=== PATIENT | female | born 1945 | race Caucasian/White ===

== ENCOUNTER → 2019-01-22 10:56 | Outpatient (CLI) | payer MEDICARE, SELFPAY ==
[2018-12-14 15:22] VITALS: BMI 29.2
--- NOTE | 2019-01-22 11:00 | BI_ITS ---
MAMMOGRAPHY - BILATERAL SCREENING 3-D NAYA SYNTHESIS REASON FOR EXAM: Female, 73 years old. Bilateral Screening 3-D tomosynthesis PERTINENT HISTORY: History of breast cancer in sister at age 50. TECHNIQUE: 2-D mammograms and 3-D Naya synthesis of the breast (s) were performed. CAD was performed. COMPARISON: September 17, 2017, March 07, 2015 FINDINGS: The breast composition is almost entirely fat. Scattered benign calcifications are stable. There are stable normal-appearing lymph nodes. No dense spiculated masses or suspicious microcalcifications are identified. No architectural distortion is identified. There is no skin thickening or retraction. There has been no significant change since the prior study. BI/SCREENING MAMM (CAD), BILAT IMPRESSION: No mammographic signs of malignancy. Routine yearly mammograms recommended. ASSESSMENT CATEGORY: BIRADS Category 2: Benign. A letter regarding these results will be sent to the patient by the facility within 30 days. FOLLOW UP RECOMMENDATION: Yearly follow up mammogram recommended. (A) Approximately 10% of breast cancers are not detected by mammography. A normal mammogram should not delay biopsy of a clinically suspicious abnormality. Electronically Signed: Sam Eugene MD at 17:36 EDT , Service support ,
== END ==
PROVIDERS: Family Provider Internal Medicine; PCP Internal Medicine; Visit Provider Internal Medicine
DX: Z12.31 Encounter for screening mammogram for malignant neoplasm of breast (principal); Z80.3 Family history of malignant neoplasm of breast
CPT/HCPCS: 77063; 77067

== ENCOUNTER → 2020-08-29 | Outpatient (CLI) | payer MEDICARE, SELFPAY ==
[2020-05-15 08:44] VITALS: BMI 29.5
--- NOTE | 2020-08-29 09:20 | CT_ITS ---
STUDY: CTA CHEST REASON FOR EXAM: Female, 75 years old. +COVID----WORSENING SHORTNESS OF BREATH X2 DAYS RADIATION DOSAGE (If Supplied By Facility): CTDIvol = ( 8.75 ) mGy, DLP = ( 326.65 ) mGycm TECHNIQUE: The examination was performed with the intravenous administration of IV 100mL Isovue-370. Post-processing of the angiographic images was performed, with multiplanar reformation and 3D reconstruction. Individualized dose optimization techniques were used for this CT. COMPARISON: None. FINDINGS: Normal enhancement of the main pulmonary artery and right and left pulmonary arteries. Normal enhancement of the bilateral peripheral pulmonary arteries. There is no demonstrated pulmonary embolism. Normal thoracic aorta and visualized great vessels. There is no demonstrated aortic dissection. Normal heart and pericardium. Normal mediastinum. Normal hilar regions. Normal visualized trachea and bronchi. Hyperinflation. Multiple areas of groundglass appearance seen in both upper and lower lobes with a peripheral distribution. This is worse in the right lower lobe. Findings are suggestive of pneumonitis related to Covid19 infection. Normal pleura. Normal chest wall structures. There are degenerative changes of thoracic spine. There is a 4.1 cm x 4.2 cm cyst in the upper pole of the right kidney. CT/CTA Chest W/WO Contrast IMPRESSION: Multiple areas of groundglass appearance involving both lungs more prominent in the right lower lobe and a preferential lateral distribution. Findings are suggestive of a pneumonitis related to Covid 19 Electronically Signed: Jose Rosen, at 10:20 EDT , Service support ,
[2020-08-29 09:35] LABS: CREATININE FINGERSTICK < 0.6 mg/dL (0.55-1.02); EGFR FINGERSTICK > 60.0000 mL/min (>60)
[2020-08-29 10:05] LABS: Absolute Lymphocyte Count 1.24 X10^3/uL (0.83-4.51); Absolute Neutrophil Count 3.5 X10^3/uL (2.0-7.7); Basophil# 0.02 X10^3/uL; Basophil% 0.4 % (0-1); Eosinophil# 0.01 X10^3/uL; Eosinophils% 0.2 % (0-5); Hematocrit 43.4 % (37-47); Hemoglobin 14.2 g/dL (12.0-15.0); Lymphocyte # 1.24 X10^3/ul (4.0); Lymphocyte % 23.8 % (19-41); Mean Corp Hgb Conc 32.7 g/dL (32-36); Mean Corpuscular Hgb 31.6 pg (27.0-32.0); Mean Corpuscular Volume 96.4 fL (81-99); Mean Platelet Vol. 9.5 fl (6.2-12.0); Monocyte% 7.7 % (0-10); NRBC Flagged by Analyzer 0 % (0-5); Neutrophil # 3.53 X10^3/uL (2.7-7.7); Neutrophil % 67.5 % (47-70); Platelet Count 252 K/mm3 (150-450); RBC Distribution Width SD 42.7 fl (35.1-43.9); White Blood Count 5.2 K/mm3 (4.4-11.0)
[2020-08-29 10:10] LABS: BNP,B-Type NATRIURETIC PEPTIDE 28.4 pg/mL (0-100)
[2020-08-29 10:11] LABS: ALB/GLOB Ratio 0.9 RATIO (0.9-2.4); AST(SGOT) 35 U/L (15-37); Alanine Aminotransfer ALT/SGPT 31 U/L (13-56); Albumin, Serum 3.5 g/dL (3.2-5.0); Alkaline Phosphatase 101 U/L (45-117); Anion Gap 6 (5-15); BUN 9 mg/dL (7-18); BUN/Creat Ratio 11.3 RATIO (10-20); Calcium,Total 8.8 mg/dL (8.5-10.1); Chloride 106 mmol/L (98-107); EST Glomerular Filtration Rate 75 mL/min (>60); Est Glom Filt Rate - Afr Amer 91 mL/min (>60); Globulin 4.1 g/dL (2.2-4.2); Glucose 108 mg/dL (74-106); Potassium 3.7 mmol/L (3.5-5.1); Protein, Total 7.6 g/dL (6.4-8.2); Sodium Level 140 mmol/L (136-145)
== END | disposition home or self-care (01) ==
LOC: CT 09:17 → LABSPEC 09:45
PROVIDERS: PCP Internal Medicine; Referring Provider Internal Medicine; Visit Provider Internal Medicine
DX: R09.02 Hypoxemia (principal); B97.21 SARS-associated coronavirus as the cause of diseases classified elsewhere
CPT/HCPCS: 71275; 80053; 83880; 85025; Q9967

== ENCOUNTER → 2021-04-12 15:05 | Outpatient (CLI) | payer MEDICARE, SELFPAY ==
[2021-04-12 13:37] VITALS: BMI 29.5
[2021-04-12 15:40] LABS: Mucous, Urine 0 SEEN /hpf (<or=2+); Squamous Epithelial Cells - UA 0 SEEN /hpf (5-10)
[2021-04-12 16:00] LABS: Color, Urine Yellow (Yellow); Glucose, Dipstick Normal (Normal); Ketone-Dipstick Negative (Negative); Leukocyte Esterase-Dipstick 500 /ul (Negative); Nitrite-Dipstick Positive (Negative); Occult Blood-Urine 250 /ul (Negative); Protein-Dipstick 30 mg/dl (Negative); Urine Bilirubin Dipstick Negative (Negative); Urine Clarity Cloudy (Clear); Urine Urobilinogen Normal (Normal)
[2021-04-12 16:10] LABS: Bacteria 1+ /hpf (None Seen); Red Blood Cells-Urine 50-100 SEEN /hpf (0-5); White Blood Cells >100 SEEN /hpf (0-5)
== END ==
PROVIDERS: PCP Internal Medicine; Referring Provider Physician Assistant; Visit Provider Physician Assistant
DX: N39.0 Urinary tract infection, site not specified (principal)
CPT/HCPCS: 81001; 87086; 87088; 87186

== ENCOUNTER → 2021-05-08 08:23 | Outpatient (CLI) | payer MEDICARE, SELFPAY ==
[2020-05-15 08:44] VITALS: BMI 29.5
[2021-04-12 13:37] VITALS: BMI 29.5
--- NOTE | 2021-05-08 08:25 | BI_ITS ---
MAMMOGRAPHY - BILATERAL SCREENING REASON FOR EXAM: Female, 75 years old. Routine annual screening examination. PERTINENT HISTORY: Sister with breast cancer. TECHNIQUE: Digital bilateral breast naya (3D mammographic acquisition) in the CC and MLO projections. 2-D mediolateral oblique (MLO) and craniocaudad (CC) views of both breasts were obtained. CAD: Full Field Digital Mammography with Computer Added Detection was performed. COMPARISON: Comparison is made with prior study 01/22/2019 and 09/17/2017. FINDINGS: Breast Composition: The breasts are heterogeneously dense, which may obscure small masses. There are no dominant masses or suspicious calcifications. Stable 6.4 mm x 7 mm well-defined nodule with a central fatty notch in the axillary region of the right breast suggestive of a small lymph node. No other significant abnormalities are identified. There has been no significant change since the prior study. BI/SCRN MAMM (CAD)W/NAYA BILAT IMPRESSION: Stable bilateral screening mammogram. Yearly follow-up mammogram recommended. (A) ASSESSMENT CATEGORY: BIRADS Category 2: Benign. A letter regarding these results will be sent to the patient by the facility within 30 days. Approximately 10% of breast cancers are not detected by mammography. A normal mammogram should not delay biopsy of a clinically suspicious abnormality. [id number] Electronically Signed: Jose Rosen MD at 9:36 EDT , Service support ,
== END ==
PROVIDERS: PCP Internal Medicine; Referring Provider Obstetrics & Gynecology; Visit Provider Obstetrics & Gynecology
DX: Z12.31 Encounter for screening mammogram for malignant neoplasm of breast (principal); Z80.3 Family history of malignant neoplasm of breast
CPT/HCPCS: 77063; 77067

== ENCOUNTER 2022-10-31 10:16 | Outpatient (CLI) | payer MEDICARE, SELFPAY ==
--- NOTE | 2022-10-31 | VUL_PTH ---
PATIENT: STU TUTTLE LOC: [facility] U#:[id number] AGE/SX: 77/F ROOM: RE10/31/[address]: Dr. Rosina Mercedes MD : 1945 BED: DIS: 10/31/2022 SPEC #: [id number] RECD: 10/31/22 12:49 STATUS: LISSET OSORIO #: [id number] ALEJANDRA: 10/31/22 00:[address]: Rosina Mercedes DEPT: SURGICAL PATHOLOGY RECD BY: Sirena Rizo ENTERED: 11/01/22 09:11 SP TYPE: VULVA BX OTHR DR: Dr. Nicole Higginbotham DO Tissues: Vulva, NOS Procedures: Surgery Specimen Level III HEADER OPERATION: Vulvar biopsy PRE-OP DIAGNOSIS: Vulvar lesion TISSUE SUBMITTED: Vulva MICROSCOPIC DIAGNOSIS Vulvar lesion, biopsy: Fibroepithelial polyp, inflamed. AM:joanna 11/05/2022 MICROSCOPIC DESCRIPTION Slides are reviewed. GROSS DESCRIPTION Received is one container labeled with the patient's name and not further designated. The specimen consists of a piece of crane-white skin measuring 1 x 0.5 x 0.3 cm. The skin surface shows verrucous lesion. The specimen is inked and submitted entirely in one cassette. / SJ:rg 11/01/2022 TC:1 CPT: 53965
[2022-10-31 11:20] LABS: NATERA MAILED SPECIMEN
== END 2022-10-31 23:59 | disposition home or self-care (01) ==
PROVIDERS: PCP Internal Medicine; Referring Provider Obstetrics & Gynecology; Visit Provider Obstetrics & Gynecology
DX: N84.3 Polyp of vulva (principal); Z80.3 Family history of malignant neoplasm of breast
CPT/HCPCS: 88304; 88305

== ENCOUNTER → 2022-11-21 | Outpatient (CLI) | payer MEDICARE, SELFPAY ==
--- NOTE | 2022-11-22 09:11 | EKG12_ITS ---
Test Reason : PRE OP Blood Pressure : / mmHG Vent. Rate : 075 BPM Atrial Rate : 075 BPM P-R Int : 122 ms QRS Dur : 070 ms QT Int : 374 ms P-R-T Axes : 062 034 027 degrees QTc Int : 417 ms Normal sinus rhythm Low voltage QRS Borderline ECG Confirmed by BRIANNE AQUINO, MARIA VICTORIA ([id number]), newspaper editor managing GEM ZURITA ([id number]) on 11/25/2022 10:41:10 AM Referred By: Rosina Mercedes Confirmed By:MARIA VICTORIA DECKER MD
--- NOTE | 2022-11-26 02:34 | HP.PCM_ITS ---
HPI - General HPI Narrative STU TUTTLE, is a 77 F who presents with left vulvar groin lesion for excision and removal. biopsy showed a benign lesion but it is uncomfortable and she would like it removed. [facility] Medical History (Updated 11/26/22 @ 02:[address] Rosina Mercedes MD) Anxiety Arthritis Back pain Diabetes GERD (gastroesophageal reflux disease) History of echocardiogram History of pain when walking Hypercholesteremia Leg cramps Non-smoker Post-menopausal Thyroid disease Home Medications multivitamin with folic acid 400 mcg tablet 1 tab PO DAILY 01/02/16 [History Last Taken Unknown] levothyroxine 50 mcg tablet 50 mcg PO DAILY 12/14/18 [History Last Taken Unknown] omeprazole 40 mg capsule,delayed release 40 mg PO DAILY 05/15/20 [History Last Taken Unknown] clotrimazole-betamethasone 1 %-0.05 % topical cream 1 applic topical BID under breasts 2 weeks #45 grams 05/28/22 [Rx Last Taken Unknown] clobetasol 0.05 % topical ointment 1 applic topical QHS #30 grams 10/31/22 [Rx Last Taken Unknown] Allergy/AdvReac Type Severity Reaction Status Date / Time No Known Allergies Allergy Verified 11/21/22 14:11 Family History Mother Heart disease Sister Cancer ovarian Breast cancer Surgical History (Updated 11/21/22 @ 14:20 by Leana Vargas) History of thyroidectomy Social History Smoking Status: Never smoker alcohol intake: never substance use type: does not use caffeine: Yes what type of physical activity do you participate in: walking seatbelt use: always do you feel safe at home: Yes additional social history: patient is retired ROS Review of Systems ROS Unobtainable: due to mental status and other Constitutional Constitutional: Reports systems reviewed and no addt'l complaints, except as documented; Denies as per HPI, change in weight, fatigue, fever(s), malaise, weakness or other Eyes Eyes: Reports systems reviewed and no addt'l complaints, except as documented; Denies as per HPI, change in vision or other ENT HEENT: Reports systems reviewed and no addt'l complaints, except as documented Respiratory/Chest Respiratory/Chest: Reports systems reviewed and no addt'l complaints, except as documented Gastrointestinal Gastrointestinal: Reports systems reviewed and no addt'l complaints, except as documented and as per HPI Genitourinary Genitourinary: Reports as per HPI Musculoskeletal Musculoskeletal: Reports systems reviewed and no addt'l complaints, except as documented Neurologic Neurologic: Reports systems reviewed and no addt'l complaints, except as documented Psychiatric Psychiatric: Reports systems reviewed and no addt'l complaints, except as documented Endocrine Endocrinology: Reports systems reviewed and no addt'l complaints, except as documented Hematologic/Lymphatic Hematologic/Lymphatic: Reports systems reviewed and no addt'l complaints, except as documented Physical Exam Const alert, oriented x3 and no apparent distress HEENT normocephalic Head and Scalp: atraumatic Eyes EOMs intact bilaterally and conjunctivae normal Neck full ROM, no lymphadenopathy, supple and thyroid normal General: trachea midline Lymph Lymphatic: no lymphadenopathy noted Resp normal respiratory effort, no retractions, no use of accessory muscles and clear to auscultation bilaterally Cardio regular rhythm GI normal to inspection, nondistended, normoactive bowel sounds, soft to palpation, non-distended and no masses Inspection: Negative for abdominal distention Narrative: left groin 4 x 3 cm lesion fungating Back/Spine no CVA tenderness Extremity normal to inspection Skin no rashes or lesions noted Neuro moves all extremities and deep tendon reflexes 2+ bilaterally Psych mental status grossly normal Assessment & Plan Assessment/Plan (1) Vulvar lesion: PLAN: Plan After discussing the patient's diagnosis and treatment plan options, patient wishes to proceed with surgical management. I have discussed with the patient the risks, benefits, and alternatives of the procedure which include but are not limited to risks of anesthesia, bleeding, infection, possible damage to bowel, bladder, or surrounding vasculature which could lead to additional surgery to evaluate any complications. Patient agrees to procedure and wishes to proceed. ACOG/uptodate references given for additional information regarding procedure.
[2022-11-26 12:54] VITALS: BP 148/70; PULSE 91; RESP 18; TEMP 36; O2SAT 97; BMI 29.9
--- NOTE | 2022-11-26 13:40 | SUR.PREOP ---
PT IS BEING CANCELLED DUE TO EATING AND DRINKING AT 11AM BY . DR. LUKAS NIELSEN AND TO GO SEE THE PT AT BEDSIDE.
== END | disposition home or self-care (01) ==
LOC: PAT 12-16 13:51
PROVIDERS: PCP Internal Medicine; Referring Provider Obstetrics & Gynecology; Visit Provider Obstetrics & Gynecology
DX: Z01.810 Encounter for preprocedural cardiovascular examination (principal)
CPT/HCPCS: 93005; J7120; J2405

== ENCOUNTER → 2022-11-22 | Outpatient (CLI) | payer MEDICARE, SELFPAY ==
[2022-11-22 10:15] LABS: Absolute Lymphocyte Count 1.93 X10^3/uL (0.83-4.51); Basophil# 0.05 X10^3/uL; Basophil% 0.9 % (0-1); Eosinophil# 0.14 X10^3/uL; Eosinophils% 2.5 % (0-5); Hematocrit 39.8 % (37-47); Hemoglobin 13.1 g/dL (12.0-15.0); Lymphocyte # 1.93 X10^3/ul (0.83-4.51); Lymphocyte % 34.4 % (19-41); Mean Corp Hgb Conc 32.9 g/dL (32-36); Mean Corpuscular Hgb 31.5 pg (27.0-32.0); Mean Corpuscular Volume 95.7 fL (81-99); Mean Platelet Vol. 9.6 fl (6.2-12.0); Monocyte# 0.45 X10^3/uL; NRBC Flagged by Analyzer 0 % (0-5); Neutrophil # 3.03 X10^3/uL (2.7-7.7); Platelet Count 334 K/mm3 (150-450); RBC Distribution Width CV 11.9 % (11.6-14.6); RBC Distribution Width SD 41.4 fl (35.1-43.9); Red Blood Count 4.16 M/mm3 (4.2-5.4); White Blood Count 5.6 K/mm3 (4.4-11.0)
[2022-11-22 10:37] LABS: ALB/GLOB Ratio 1.1 RATIO (0.9-2.4); AST(SGOT) 15 U/L (15-37); Alanine Aminotransfer ALT/SGPT 23 U/L (13-56); Albumin, Serum 3.6 g/dL (3.2-5.0); Alkaline Phosphatase 69 U/L (45-117); Anion Gap 8 (5-15); BUN 12 mg/dL (7-18); BUN/Creat Ratio 15.3 RATIO (10-20); Calcium,Total 8.7 mg/dL (8.5-10.1); Chloride 105 mmol/L (98-107); Creatinine, Serum 0.79 mg/dL (0.55-1.02); EST Glomerular Filtration Rate 76 mL/min (>60); Est Glom Filt Rate - Afr Amer 91 mL/min (>60); Globulin 3.4 g/dL (2.2-4.2); Glucose 105 mg/dL (74-106); Potassium 3.5 mmol/L (3.5-5.1); Sodium Level 141 mmol/L (136-145)
== END | disposition home or self-care (01) ==
LOC: LAB 09:25
PROVIDERS: PCP Internal Medicine; Referring Provider Obstetrics & Gynecology; Visit Provider Obstetrics & Gynecology
DX: Z01.812 Encounter for preprocedural laboratory examination (principal)
CPT/HCPCS: 36415; 80053; 85025; 86850; 86900; 86901

== ENCOUNTER → 2022-11-28 | Outpatient (CLI) | payer MEDICARE, SELFPAY ==
--- NOTE | 2022-11-28 13:35 | BI_ITS ---
MAMMOGRAPHY - BILATERAL SCREENING REASON FOR EXAM: Female, 77 years old. Routine annual screening examination. PERTINENT HISTORY: Sister with breast cancer. TECHNIQUE: Digital bilateral breast naya (3D mammographic acquisition) in the CC and MLO projections. 2-D mediolateral oblique (MLO) and craniocaudad (CC) views of both breasts were obtained. CAD: Full Field Digital Mammography with Computer Added Detection was performed. COMPARISON: Comparison is made with prior examination dated 05/08/2021 and 01/22/2019. FINDINGS: Breast Composition: The breasts are heterogeneously dense, which may obscure small masses. There are no dominant masses or suspicious calcifications. Stable small benign appearing bilateral axillary lymph nodes. No other significant abnormalities are identified. There has been no significant change since the prior study. BI/SCRN MAMM (CAD)W/NAYA BILAT IMPRESSION: Stable bilateral screening mammogram. Yearly follow-up mammogram recommended. (A) ASSESSMENT CATEGORY: BIRADS Category 2: Benign. A letter regarding these results will be sent to the patient by the facility within 30 days. Approximately 10% of breast cancers are not detected by mammography. A normal mammogram should not delay biopsy of a clinically suspicious abnormality. [id number] Electronically Signed: Jose Rosen MD at 14:56 EST ,
--- NOTE | 2022-11-28 13:44 | BD_ITS ---
STUDY: DUAL ENERGY X-RAY ABSORPTIOMETRY / DXA REASON FOR EXAM: Female, 77 years old. Postmenopausal TECHNIQUE: Bone Mineral Density (BMD) measurements of lumbar spine and bilateral hips were obtained. COMPARISON: Comparison is made with prior study 09/17/2017. FINDINGS: Lumbar Spine (L1-L4): g/cm2 (0.746) / T-score (-2.7) / Z-score (-0.3) Findings are suggestive of osteoporosis with a high fracture risk. Left Femur Total: g/cm2 (0.724) / T-score (-1.8) / Z-score (0.1) Left Femoral Neck: g/cm2 (0.593) / T-score (-2.3) / Z-score (-0.2) Right Femur Total: g/cm2 (0.716) / T-score (-1.9) / Z-score (0.0) Right Femoral Neck: g/cm2 (0.598) / T-score (-2.3) / Z-score (-0.1) The T-Scores on the most recent prior examination were: Lumbar Spine (L1-L4): There has been worsening of bone density since the previous examination. Left Femur Total: which represents a worsening of 8.1%. Right Femur Total: which represents a worsening of 9.9%. BD/Dexa Bone Density Study IMPRESSION: The patient is considered osteoporotic as outlined below according to World [place] Organization (WHO) criteria with a high fracture risk. There has been worsening of bone density since the previous examination. Reference Information: The T-score is the number of standard deviations above or below the standard which is normal for young adults at their peak bone mineral density. The World Health Organization (WHO) interprets the T-scores as follows: Above -1 Normal bone density Between -1 and -2.5 Osteopenia Equal to / or below -2.5 Osteoporosis As a practical clinical guideline, osteopenia may be graded as follows: Mild -1 through -1.5 Moderate -1.6 through -2.0 Severe -2.1 through -2.4 The Z-score is the number of standard deviations above or below age-matched controls. A Z-score of less than -1.5 would be considered abnormal. References: 1. NIH Osteoporosis and Related Bone Diseases www osteo.org 2. International Society for Clinical Densitometry www iscd.org 3. National Osteoporosis Foundation www nof.org Electronically Signed: Jose Rosen MD at 9:36 EST ,
== END | disposition home or self-care (01) ==
LOC: OPBD 13:31
PROVIDERS: PCP Internal Medicine; Visit Provider Obstetrics & Gynecology
DX: Z78.0 Asymptomatic menopausal state (principal); Z12.31 Encounter for screening mammogram for malignant neoplasm of breast
CPT/HCPCS: 77063; 77067; 77080

== ENCOUNTER 2023-01-14 11:48 | Day surgery (SDC) | payer MEDICARE, SELFPAY ==
--- NOTE | 2023-01-13 19:25 | HP.PCM_ITS ---
HPI - General HPI Narrative STU TUTTLE, is a 77 F who presents for excision of left groin lesion that has been present and increasing in size. biopsy in office was benign. [facility] Medical History (Updated 01/07/23 @ 09:59 by Leana Vargas) Anxiety Arthritis Back pain Diabetes GERD (gastroesophageal reflux disease) History of echocardiogram History of pain when walking Hypercholesteremia Leg cramps Non-smoker Osteoporosis Post-menopausal Thyroid disease Wears glasses Home Medications multivitamin with folic acid 400 mcg tablet 1 tab PO DAILY 01/02/16 [History Last Taken Unknown] levothyroxine 50 mcg tablet 50 mcg PO DAILY 12/14/18 [History Last Taken Unknown] omeprazole 40 mg capsule,delayed release 40 mg PO DAILY 05/15/20 [History Last Taken Unknown] clobetasol 0.05 % topical ointment 1 applic topical QHS #30 grams 10/31/22 [Rx Last Taken Unknown] clotrimazole-betamethasone 1 %-0.05 % topical cream 1 applic topical DAILY under breasts 01/07/23 [History Last Taken Unknown] Allergy/AdvReac Type Severity Reaction Status Date / Time No Known Allergies Allergy Verified 01/07/23 09:52 Family History Mother Heart disease Sister Cancer ovarian Breast cancer Surgical History (Updated 01/07/23 @ 09:59 by Leana Vargas) History of thyroidectomy Hx of left cataract extraction Hx of right cataract extraction Social History Smoking Status: Never smoker alcohol intake: never substance use type: does not use caffeine: Yes what type of physical activity do you participate in: walking seatbelt use: always do you feel safe at home: Yes additional social history: patient is retired ROS Constitutional Constitutional: Reports systems reviewed and no addt'l complaints, except as documented; Denies as per HPI, change in weight, fatigue, fever(s), malaise, weakness or other Eyes Eyes: Reports systems reviewed and no addt'l complaints, except as documented; Denies as per HPI, change in vision or other ENT HEENT: Reports systems reviewed and no addt'l complaints, except as documented Respiratory/Chest Respiratory/Chest: Reports systems reviewed and no addt'l complaints, except as documented Gastrointestinal Gastrointestinal: Reports systems reviewed and no addt'l complaints, except as documented and as per HPI Genitourinary Genitourinary: Reports as per HPI Musculoskeletal Musculoskeletal: Reports systems reviewed and no addt'l complaints, except as documented Neurologic Neurologic: Reports systems reviewed and no addt'l complaints, except as documented Psychiatric Psychiatric: Reports systems reviewed and no addt'l complaints, except as documented Endocrine Endocrinology: Reports systems reviewed and no addt'l complaints, except as documented Hematologic/Lymphatic Hematologic/Lymphatic: Reports systems reviewed and no addt'l complaints, except as documented Vital Signs Vital Signs Vital Signs: Weight Weight: 154 lb Physical Exam Const alert, oriented x3 and no apparent distress HEENT normocephalic Head and Scalp: atraumatic Eyes EOMs intact bilaterally and conjunctivae normal Neck full ROM, no lymphadenopathy, supple and thyroid normal General: trachea midline Lymph Lymphatic: no lymphadenopathy noted Resp normal respiratory effort, no retractions, no use of accessory muscles and clear to auscultation bilaterally Cardio regular rhythm GI normal to inspection, nondistended, normoactive bowel sounds, soft to palpation, non-distended and no masses Inspection: Negative for abdominal distention Back/Spine no CVA tenderness Extremity normal to inspection Skin Skin Narrative: left inguinal area 3x4 cm fungating lesion Neuro moves all extremities and deep tendon reflexes 2+ bilaterally Psych mental status grossly normal Assessment & Plan Assessment/Plan (1) Vulvar lesion: PLAN: Plan After discussing the patient's diagnosis and treatment plan options, patient wishes to proceed with surgical management. I have discussed with the patient the risks, benefits, and alternatives of the procedure which include but are not limited to risks of anesthesia, bleeding, infection, possible damage to bowel, bladder, or surrounding vasculature which could lead to additional surgery to evaluate any complications. Patient agrees to procedure and wishes to proceed. ACOG/uptodate references given for additional information regarding procedure.
[2023-01-14 12:16] VITALS: BP 167/67; PULSE 84; RESP 16; TEMP 37; O2SAT 99; BMI 30.1
[2023-01-14] MEDS: Lactated Ringers 1,000 ML 15 ML IV (12:19)
--- NOTE | 2023-01-14 13:25 | MASS_PTH ---
PATIENT: STU TUTTLE LOC: [facility] U#:[id number] AGE/SX: 77/F ROOM: RE01/14/[address]: Dr. Rosina Mercedes MD : 1945 BED: DIS: 01/14/2023 SPEC #: [id number] RECD: 01/14/23 16:32 STATUS: LISSET OSORIO #: [id number] ALEJANDRA: 01/14/23 13:[address]: Rosina Mercedes DEPT: SURGICAL PATHOLOGY RECD BY: Sirena Rizo ENTERED: 01/15/23 07:52 SP TYPE: Mass OTHR DR: Dr. Nicole Higginbotham, DO Tissues: Inguinal region, NOS Procedures: Surgery Specimen Level IV HEADER OPERATION: Excision groin lesion PRE-OP DIAGNOSIS: Vulvar lesion left groin TISSUE SUBMITTED: Left groin mass MICROSCOPIC DIAGNOSIS Left groin mass, excision: Inflamed verrucous keratosis. Negative for malignancy. See comment. SJ:joanna 01/16/2023 COMMENT Clinical correlation and appropriate follow up are necessary. MICROSCOPIC DESCRIPTION Slides are reviewed. GROSS DESCRIPTION Received in fixative is one container labeled with the patient's name and designated left groin mass. The specimen consists of a piece of crane-white skin ellipse measuring 3.0 x 0.6 cm and up to 0.5 cm in thickness. The specimen is inked, serially sectioned and submitted entirely in two cassettes. Cassette 2 contains the tips of skin ellipse. / KALEE:joanna 01/16/2023 TC:5 CPT: 91511
[2023-01-14] MEDS: Cefotetan 2 GM in 0.9% NS 100 ML IV (13:31)
--- NOTE | 2023-01-14 13:59 | PCM.OPRPT ---
Problems Associated Problem List Diagnoses (1) Vulvar lesion: Report of Operation Date of Procedure: 01/14/23 Pre-Operative Diagnosis: vulvar lesion Post-Operative Diagnosis: same Surgery/Procedure Performed:: left excision groin lesion 4 x 2 cm Description of Surgical Findings:: verrucous groin lesion 4 cm Surgeon: Rosina Mercedes Type of Anesthesia: General Special Medications: marcainej Specimen's removed: groin lesion Estimated Blood Loss (mL): minimal Description of Procedure: patient placed under general anesthesia prepped and draped in dorsal ltihotomy in usual sterile fashion. left elliptical skin incision made 4 x 2 cm around the lesion and it skinned off and sent to path. deep stitches with 3-0 vicryl and then subcutaneous skin closure with 3-0 monocryl. steri strips applied. patiet awoken and taken to recovery in stable condition Procedures Urinary/Genital [id number]: [id number] Partial removal of vulva (4 cm x 2 cm)
[2023-01-14] MEDS: Bupiv/Epi 0.25% 30 ML Vial (14:03)
--- NOTE | 2023-01-14 14:19 | DCINST_ITS ---
Discharge Instructions Diet Discharge Diet: No restrictions Activity Discharge Activity: Return to Normal Activity, May Drive (when pain free) and May Shower May resume sexual activity in: 1 week Weight Bearing Status: Full weight bearing Lifting Restrictions: 30 lbs for 2 weeks Dressing / Incision Call your doctor if your incision/area has: Continuous Slow Oozing, Sudden Increased Bleeding, Increased Pain/ Swelling, Increased Redness and Foul Smelling Discharge Call your doctor if you observe: Fever of 101 or Higher, Using more than 1 pad per hour, Shortness of breath, Chest pain and Uncontrolled pain Suture Line Care: Avoid Pulling/Pushing and Avoid Pinching/Bending Remove Dressing in: 1 week (if present) Cleanse incision/area with: Soap & Water and Keep Dressing Clean & Dry Follow Up Care Please Follow Up With: Rosina Mercedes MD When: Call to make an appointment with your doctor for a postop visit in 2 weeks Test Results: Test results from this visit will be discussed in further detail at your follow- up appointment, if applicable. Discharge Plan Admission Attending Provider: Rosina Mercedes Primary Care Provider: Nicole Higginbotham Discharge Orders/Prescriptions Prescriptions: No Action levothyroxine 50 mcg tablet 50 mcg PO DAILY omeprazole 40 mg capsule,delayed release(DR/EC) 40 mg PO DAILY clobetasol 0.05 % ointment 1 applic Topical QHS Qty: 30 1RF Rx Instructions: apply thin layer; massage gently into affected area nightly prn for lichen sclerosis multivitamin with folic acid 1 TABLET tablet 1 tab PO DAILY clotrimazole-betamethasone 1-0.05 % cream 1 applic topical DAILY Referrals / Follow Up: Nicole Higginbotham DO [Primary Care Provider] - Disposition Disposition (needs filled in before D/C Order can be placed): Home, Self Care
[2023-01-14 14:24] VITALS: BP 146/83; BP 167/67; PULSE 89; RESP 18; TEMP 36.3; O2SAT 99
[2023-01-14 14:30] VITALS: BP 148/79; BP 167/67; PULSE 89; RESP 18; O2SAT 97
[2023-01-14 14:45] VITALS: BP 149/73; BP 167/67; PULSE 85; RESP 18; O2SAT 95
[2023-01-14 15:00] VITALS: BP 139/62; BP 167/67; PULSE 83; RESP 18; TEMP 36.8; O2SAT 94
[2023-01-14 15:15] VITALS: BP 167/67
== END 2023-01-14 15:35 | disposition home or self-care (01) ==
LOC: SDC 11:49 → AC 11:51
PROVIDERS: PCP Internal Medicine; Referring Provider Obstetrics & Gynecology; Visit Provider Obstetrics & Gynecology
PROC: (CPT 56740; principal; 2023-01-14 13:15)
DX: D28.0 Benign neoplasm of vulva (principal); E03.9 Hypothyroidism, unspecified; K21.9 Gastro-esophageal reflux disease without esophagitis; R52 Pain, unspecified; Z79.899 Other long term (current) drug therapy
CPT/HCPCS: 11426; 12044; 00940; 86850; 86900; 86901; 88305; J7120; J2405

== ENCOUNTER → 2025-03-03 | Outpatient (CLI) | payer MEDICARE, SELFPAY ==
--- NOTE | 2025-03-03 08:40 | CT_ITS ---
PROCEDURE: LIMITED CHEST CT CARDIAC ONLY REASON FOR EXAM: HYPERCHOLESTEREMIA TECHNIQUE: Prone and supine chest CT without contrast, high resolution CT (HRCT) protocol. Coronal and Sagittal reconstruction series were provided. One or more dose reduction techniques were used (e.g., Automated exposure control, adjustment of the mA and/or kV according to patient size, use of iterative reconstruction technique). COMPARISON: CTA CHEST DATED 08/29/2020. FINDINGS: Non-Coronary Cardiac Findings: The myocardium, valves and pericardium have a normal appearance. Non-Cardiac Findings: Lungs: Clear. Right lower lobe subpleural lipoma measuring 5.4 x 1.7 cm. Pleural spaces: No fluid, pneumothorax or thickening. Mediastinum:The visualized mediastinum is normal with no lymphadenopathy. Pulmonary vessels: Unremarkable. Chest wall: Unremarkable. Upper abdomen and bones: Normal appearance within the field of view. CT/Limited Chest CT Cardiac Only IMPRESSION: UNREMARKABLE LIMITED CHEST CT NON-CORONARY AND NON-CARDIAC ANATOMY ONLY. RIGHT LOWER LOBE SUBPLEURAL LIPOMA, ALSO NOTED ON THE PREVIOUS STUDY. Reading Location: [facility]
--- NOTE | 2025-03-03 17:03 | CA.SCORE ---
Calcium Scoring Date of Study:: 03/03/25 Indications Indications: HLD Coronary Calcium Scoring: High-resolution Computed Tomographic imaging of the chest was performed on [03/03/25 ], with particular attention paid to the coronary arteries. Images from the examination were analyzed for the presence and extent of coronary artery calcification , using coronary calcium quantification software. The patient tolerated the procedure well and there were no complications. The results of the coronary calcification analysis are provided below. Findings Coronary Artery Left Main (LM): 0 Left Anterior Descending (LAD): 81.7 Left Circumflex (LCX): 0 Right Coronary Artery (RCA): 0 Total Agatston Score: 81.7 Percentile Rankin-75% Calcium Scoring Interpretation: Different methods to categorize the overall amount of coronary plaque. Overall amount CAC SIS Visual of coronary plaque P1 Mild -100 <2 1-2 vessels with mild amount of plaque P2 Moderate 101-300 3-4 1-2 vessels with moderate amount, 3 vessels with mild amount of plaque P3 Severe 301-999 5-7 3 vessels with moderate amount, 1 vessel with severe amount of plaque P4 Extensive >1000 >8 2-3 vessels with severe amount of plaque Conclusion: Mild amount of plaque noted in the LAD.
== END | disposition home or self-care (01) ==
PROVIDERS: PCP Internal Medicine; Referring Provider Internal Medicine; Visit Provider Internal Medicine
DX: E78.00 Pure hypercholesterolemia, unspecified (principal)
CPT/HCPCS: 75571; 76380